=== PATIENT | female | born 1970 ===

== ENCOUNTER 2023-01-01 11:58 | Inpatient (IN) | payer OTHER ==
[~2023-01-01] VITALS: Ht 157.5 cm; Wt 81.6 kg
[2023-01-01] MEDS ORDERED: NORVASC5 MG PO (12:48)
== END 2023-01-08 09:58 | disposition home or self-care (01) | DRG 743 ==
LOC: OB/GYN 01-06 06:35 → O/R 01-06 06:35 → OB/GYN 01-06 09:00
PROVIDERS: ADMIT Obstetrics & Gynecology; ATTEND Obstetrics & Gynecology
PROC: 0UT60ZZ Resection of Left Fallopian Tube, Open Approach (ICD-10-PCS; 2023-01-06)
PROC: 0UT10ZZ Resection of Left Ovary, Open Approach (ICD-10-PCS; 2023-01-06)
PROC: 0UT90ZZ Resection of Uterus, Open Approach (ICD-10-PCS; principal; 2023-01-06 09:00)
DX: D25.1 Intramural leiomyoma of uterus (principal); N72 Inflammatory disease of cervix uteri; N80.03 Adenomyosis of the uterus; Z20.822 Contact with and (suspected) exposure to COVID-19; N83.02 Follicular cyst of left ovary